=== PATIENT | male | born 2000 | race Caucasian/White ===

== ENCOUNTER 2024-05-09 16:41 | Emergency (ER) | payer MEDICAID ==
[~2024-05-09] VITALS: Ht 182.9 cm; Wt 100.0 kg
[2024-05-09 16:42] VITALS: O2SAT 97
[2024-05-09] MEDS: LEVETIRACETAM 1000MG PREMIX 100 ML IV ONE (18:07)
[2024-05-09] MEDS: SODIUM CHLORIDE 0.9% 1,000 ML IV ONE (18:07)
[2024-05-09 18:43] LABS: BASOPHILS % 0.3 % (0.0-2.0); EOSINOPHILS % 0.5 % (0.0-5.0); HEMATOCRIT. 49.8 % (42.0-52.0); HEMOGLOBIN. 16.8 g/dL (14.0-18.0); LYMPHOCYTES % 8.4 % (20.0-50.0); MEAN CORPUSCULAR HEMOGLOBIN 29.2 pg (28.0-32.0); MEAN CORPUSCULAR HGB CONC 33.8 g/dL (31.0-37.0); MEAN CORPUSCULAR VOLUME 86.5 fL (80.0-94.0); MEAN PLATELET VOLUME 8.7 fl (7.4-10.4); MONOCYTES % 5.2 % (2.0-8.0); NEUTROPHILS % 85.6 % (40.0-76.0); PLATELET 343 x1000/uL (130-400); RED BLOOD CELL COUNT 5.76 mill/uL (4.7-6.1); RED CELL DISTRIBUTION WIDTH 13.9 % (11.6-14.6); WHITE BLOOD COUNT 12.7 x1000/uL (4.5-11.0)
[2024-05-09 18:47] LABS: CHLORIDE 112 mEq/L (98-107); POTASSIUM 3.6 mEq/L (3.5-5.1); SODIUM 143 mEq/L (136-145)
[2024-05-09 18:48] LABS: CARBON DIOXIDE 17 mEq/L (21-32)
[2024-05-09 18:49] LABS: CALCIUM 9.7 mg/dL (8.7-10.4)
[2024-05-09 18:53] LABS: CREATININE 1.1 mg/dL (0.6-1.3); GLUCOSE 71 mg/dL (70-105); UREA NITROGEN BLOOD 12 mg/dL (9-23)
[2024-05-09 18:57] LABS: ETHANOL BLOOD < 10 mg/dL (<10)
[2024-05-09] MEDS: ZONISAMIDE 100MG CAPSULE PO ONE (20:19)
[2024-05-09] MEDS: LAMOTRIGINE 100MG TABLET PO SCH (20:19)
[2024-05-09 21:22] LABS: CLARITY URINE CLEAR (CLEAR); COLOR URINE YELLOW (YELLOW); GLUCOSE URINE NEGATIVE (NEGATIVE); KETONES URINE NEGATIVE (NEGATIVE); LEUKOCYTE ESTERASE URINE NEGATIVE (NEGATIVE); NITRITE URINE NEGATIVE (NEGATIVE); OCCULT BLOOD URINE NEGATIVE (NEGATIVE); PH URINE 6.5 (4.5-8.0); PROTEIN URINE 1+ (NEGATIVE); SPECIFIC GRAVITY URINE 1.022 (1.005-1.030)
[2024-05-09 21:34] LABS: *AMPHETAMINES SCREEN URINE NEGATIVE (NEGATIVE); *BARBITURATES SCREEN URINE NEGATIVE (NEGATIVE); *BENZODIAZEPINES SCREEN URINE NEGATIVE (NEGATIVE); *COCAINE SCREEN URINE NEGATIVE (NEGATIVE); METHADONE URINE SCREEN NEGATIVE (NEGATIVE); OPIATES URINE SCREEN NEGATIVE (NEGATIVE); PHENCYCLIDINE URINE SCREEN NEGATIVE (NEGATIVE)
[2024-05-09 21:35] LABS: CANNABINOID URINE SCREEN NEGATIVE (NEGATIVE); ECSTASY MDMA SCREEN URINE NEGATIVE (NEGATIVE)
[2024-05-09 22:09] VITALS: BP 139/78; PULSE 92; RESP 16; TEMP 36.50292; O2SAT 97
[2024-05-09 22:36] LABS: BACTERIA URINE NONE SEEN; RBC URINE NONE SEEN /hpf (0-2); SQUAMOUS EPITHELIAL CELL URINE NONE SEEN /lpf (RARE/1+); WBC URINE 0-2 /hpf (0-2)
== END 2024-05-09 22:24 | disposition home or self-care (01) ==
LOC: EDBD 16:41 → ER 16:41
DX: G40.909 Epilepsy, unspecified, not intractable, without status epilepticus (principal)
CPT/HCPCS: 80305; 80048; 81003; 80320; 85025; 36415; 96365; 99284; J1953; J7030; G0480

== ENCOUNTER 2024-06-09 17:52 | Emergency (ER) | payer MEDICAID ==
[~2024-06-09] VITALS: Ht 172.7 cm; Wt 110.0 kg
[2024-06-09 17:55] VITALS: O2SAT 98
[2024-06-09] MEDS: LEVETIRACETAM 1000MG PREMIX 100 ML IV ONE (18:56)
[2024-06-09 19:26] VITALS: TEMP 36.61404
[2024-06-09 20:33] LABS: BASOPHILS % 0.3 % (0.0-2.0); EOSINOPHILS % 0.1 % (0.0-5.0); HEMATOCRIT. 44.9 % (42.0-52.0); HEMOGLOBIN. 15.4 g/dL (14.0-18.0); LYMPHOCYTES % 7.9 % (20.0-50.0); MEAN CORPUSCULAR HEMOGLOBIN 29.3 pg (28.0-32.0); MEAN CORPUSCULAR HGB CONC 34.4 g/dL (31.0-37.0); MEAN CORPUSCULAR VOLUME 85.1 fL (80.0-94.0); MEAN PLATELET VOLUME 8.2 fl (7.4-10.4); MONOCYTES % 6.2 % (2.0-8.0); NEUTROPHILS % 85.5 % (40.0-76.0); PLATELET 314 x1000/uL (130-400); RED BLOOD CELL COUNT 5.27 mill/uL (4.7-6.1); RED CELL DISTRIBUTION WIDTH 13.6 % (11.6-14.6); WHITE BLOOD COUNT 16.9 x1000/uL (4.5-11.0)
[2024-06-09 20:35] LABS: CHLORIDE 112 mEq/L (98-107); POTASSIUM 3.7 mEq/L (3.5-5.1); SODIUM 142 mEq/L (136-145)
[2024-06-09 20:36] LABS: CALCIUM 9.3 mg/dL (8.7-10.4); CARBON DIOXIDE 19 mEq/L (21-32)
[2024-06-09 20:41] LABS: CREATININE 1.1 mg/dL (0.6-1.3); GLUCOSE 112 mg/dL (70-105); UREA NITROGEN BLOOD 16 mg/dL (9-23)
[2024-06-09 20:56] LABS: ETHANOL BLOOD < 10 mg/dL (<10)
[2024-06-09 21:47] VITALS: BP 109/70; PULSE 106; RESP 12; O2SAT 99
== END 2024-06-09 21:48 | disposition home or self-care (01) ==
LOC: ER 17:52
DX: R56.9 Unspecified convulsions (principal)
CPT/HCPCS: 80048; 80320; 85025; 36415; 96365; 99284; J1953; Z7610 ×2; G0480

== ENCOUNTER 2024-07-07 08:34 | Emergency (ER) | payer MEDICAID ==
[~2024-07-07] VITALS: Ht 180.3 cm; Wt 102.0 kg
[~2024-07-07 08:34] MED LIST: CHOL2000 PO; LAMO150T5 PO; LEVE500T19 PO; ZONI100C45 PO
[2024-07-07 08:38] VITALS: O2SAT 100
[2024-07-07] MEDS: LEVETIRACETAM 1000MG PREMIX 100 ML IV ONE (09:35)
[2024-07-07 09:47] LABS: CHLORIDE 110 mEq/L (98-107); POTASSIUM 3.7 mEq/L (3.5-5.1); SODIUM 140 mEq/L (136-145)
[2024-07-07 09:48] LABS: CALCIUM 9.4 mg/dL (8.7-10.4); CARBON DIOXIDE 22 mEq/L (21-32)
[2024-07-07 09:53] LABS: CREATININE 0.9 mg/dL (0.6-1.3); GLUCOSE 94 mg/dL (70-105); UREA NITROGEN BLOOD 6 mg/dL (9-23)
[2024-07-07 09:59] LABS: ETHANOL BLOOD < 10 mg/dL (<10)
[2024-07-07 10:03] LABS: BASOPHILS % 0.7 % (0.0-2.0); EOSINOPHILS % 3.5 % (0.0-5.0); HEMATOCRIT. 44.1 % (42.0-52.0); HEMOGLOBIN. 15.1 g/dL (14.0-18.0); LYMPHOCYTES % 18.6 % (20.0-50.0); MEAN CORPUSCULAR HEMOGLOBIN 29.3 pg (28.0-32.0); MEAN CORPUSCULAR HGB CONC 34.2 g/dL (31.0-37.0); MEAN CORPUSCULAR VOLUME 85.7 fL (80.0-94.0); MEAN PLATELET VOLUME 8.3 fl (7.4-10.4); MONOCYTES % 10.9 % (2.0-8.0); NEUTROPHILS % 66.3 % (40.0-76.0); PLATELET 257 x1000/uL (130-400); RED BLOOD CELL COUNT 5.15 mill/uL (4.7-6.1); RED CELL DISTRIBUTION WIDTH 13.8 % (11.6-14.6); WHITE BLOOD COUNT 8.2 x1000/uL (4.5-11.0)
[2024-07-07 11:00] VITALS: BP 113/83; PULSE 79; RESP 12; TEMP 36.94740; O2SAT 99
[2024-07-07 11:38] LABS: CLARITY URINE CLEAR (CLEAR); COLOR URINE YELLOW (YELLOW); GLUCOSE URINE NEGATIVE (NEGATIVE); KETONES URINE NEGATIVE (NEGATIVE); LEUKOCYTE ESTERASE URINE NEGATIVE (NEGATIVE); NITRITE URINE NEGATIVE (NEGATIVE); OCCULT BLOOD URINE NEGATIVE (NEGATIVE); PROTEIN URINE NEGATIVE (NEGATIVE)
[2024-07-07 12:09] LABS: *AMPHETAMINES SCREEN URINE NEGATIVE (NEGATIVE)
[2024-07-07 12:10] LABS: *BARBITURATES SCREEN URINE NEGATIVE (NEGATIVE); *BENZODIAZEPINES SCREEN URINE NEGATIVE (NEGATIVE); *COCAINE SCREEN URINE NEGATIVE (NEGATIVE); CANNABINOID URINE SCREEN NEGATIVE (NEGATIVE); ECSTASY MDMA SCREEN URINE NEGATIVE (NEGATIVE); METHADONE URINE SCREEN NEGATIVE (NEGATIVE); OPIATES URINE SCREEN NEGATIVE (NEGATIVE); PHENCYCLIDINE URINE SCREEN NEGATIVE (NEGATIVE)
== END 2024-07-07 11:28 | disposition home or self-care (01) ==
LOC: ER 08:34
DX: R56.9 Unspecified convulsions (principal); Z98.890 Other specified postprocedural states; Z91.012 Allergy to eggs
CPT/HCPCS: 80305; 80048; 81003; 80320; 85025; 36415; 96374; 99283; J1953; Z7610; G0480

== ENCOUNTER 2024-09-09 18:54 | Emergency (ER) | payer MEDICAID ==
[~2024-09-09] VITALS: Ht 172.7 cm; Wt 145.0 kg
[2024-09-09 18:55] VITALS: TEMP 37.2; O2SAT 96
[2024-09-09 20:27] LABS: HEMATOCRIT. 47.5 % (42.0-52.0); HEMOGLOBIN. 16.3 g/dL (14.0-18.0); MEAN CORPUSCULAR HEMOGLOBIN 29.3 pg (28.0-32.0); MEAN CORPUSCULAR HGB CONC 34.2 g/dL (31.0-37.0); MEAN CORPUSCULAR VOLUME 85.7 fL (80.0-94.0); MEAN PLATELET VOLUME 8.4 fl (7.4-10.4); PLATELET 344 x1000/uL (130-400); RED BLOOD CELL COUNT 5.55 mill/uL (4.7-6.1); RED CELL DISTRIBUTION WIDTH 13.7 % (11.6-14.6); WHITE BLOOD COUNT 17.4 x1000/uL (4.5-11.0)
[2024-09-09] MEDS: ONDANSETRON HCL 4MG/2ML INJ IV ONE (20:32)
[2024-09-09 20:34] LABS: CHLORIDE 110 mEq/L (98-107); DIFFERENTIAL COMMENT 1; POTASSIUM 3.5 mEq/L (3.5-5.1); SODIUM 142 mEq/L (136-145)
[2024-09-09 20:35] LABS: CALCIUM 9.4 mg/dL (8.7-10.4); CARBON DIOXIDE 20 mEq/L (21-32)
[2024-09-09 20:40] LABS: CREATININE 1.2 mg/dL (0.6-1.3); GLUCOSE 123 mg/dL (70-105); UREA NITROGEN BLOOD 11 mg/dL (9-23)
[2024-09-09 20:43] LABS: ETHANOL BLOOD < 10 mg/dL (<10)
[2024-09-09 20:59] LABS: PLATELET ESTIMATE NORMAL
[2024-09-09 22:39] VITALS: BP 147/82; PULSE 94; RESP 18; O2SAT 95
[2024-09-11] MEDS ORDERED: LEVE10006 MT (01:07)
== END 2024-09-09 22:41 | disposition home or self-care (01) ==
LOC: ER 18:54
DX: G40.909 Epilepsy, unspecified, not intractable, without status epilepticus (principal); Z79.899 Other long term (current) drug therapy
CPT/HCPCS: 80048; 80320; 85025; 36415; 96374; 99283; J2405; 82542; G0480

== ENCOUNTER 2024-09-19 15:54 | Emergency (ER) | payer MEDICAID ==
[~2024-09-19] VITALS: Ht 167.6 cm; Wt 100.0 kg
[~2024-09-19 15:54] MED LIST changes: +LEVE10006 MT; -LEVE500T19 PO
[2024-09-19 15:56] VITALS: O2SAT 100
[2024-09-19] MEDS: LEVETIRACETAM 1000MG PREMIX 100 ML IV ONE (16:55)
[2024-09-19 17:02] LABS: BASOPHILS % 0.2 % (0.0-2.0); EOSINOPHILS % 0.3 % (0.0-5.0); HEMATOCRIT. 51.2 % (42.0-52.0); HEMOGLOBIN. 16.7 g/dL (14.0-18.0); MEAN CORPUSCULAR HEMOGLOBIN 29.2 pg (28.0-32.0); MEAN CORPUSCULAR HGB CONC 32.6 g/dL (31.0-37.0); MEAN CORPUSCULAR VOLUME 89.4 fL (80.0-94.0); MEAN PLATELET VOLUME 8.5 fl (7.4-10.4); MONOCYTES % 5.6 % (2.0-8.0); NEUTROPHILS % 85.9 % (40.0-76.0); PLATELET 323 x1000/uL (130-400); RED BLOOD CELL COUNT 5.73 mill/uL (4.7-6.1); WHITE BLOOD COUNT 12.3 x1000/uL (4.5-11.0)
[2024-09-19 17:10] LABS: CHLORIDE 111 mEq/L (98-107); POTASSIUM 4.2 mEq/L (3.5-5.1); SODIUM 140 mEq/L (136-145)
[2024-09-19 17:11] LABS: CARBON DIOXIDE 15 mEq/L (21-32)
[2024-09-19 17:12] LABS: CALCIUM 9.3 mg/dL (8.7-10.4)
[2024-09-19 17:16] LABS: GLUCOSE 94 mg/dL (70-105); UREA NITROGEN BLOOD 7 mg/dL (9-23)
[2024-09-19] MEDS: SODIUM CHLORIDE 0.9% 1,000 ML IV ONE (17:42)
[2024-09-19 20:45] VITALS: BP 136/68; PULSE 90; RESP 14; TEMP 36.9; O2SAT 98
== END 2024-09-19 20:51 | disposition home or self-care (01) ==
LOC: ER 15:54
DX: G40.909 Epilepsy, unspecified, not intractable, without status epilepticus (principal); E11.9 Type 2 diabetes mellitus without complications; I10 Essential (primary) hypertension; Z79.899 Other long term (current) drug therapy; Z94.0 Kidney transplant status
CPT/HCPCS: 99284; 96365; 96361; 80048; 85025; 36415; 93005; J1953; J7030

== ENCOUNTER 2024-10-23 12:43 | Emergency (ER) | payer MEDICAID ==
[~2024-10-23] VITALS: Ht 172.7 cm; Wt 136.0 kg
[2024-10-23 12:47] VITALS: O2SAT 100
[2024-10-23] MEDS: SODIUM CHLORIDE 0.9% 1,000 ML IV ONE (17:06)
[2024-10-23 18:05] VITALS: BP 131/66; PULSE 95; RESP 16; TEMP 36.7; O2SAT 100
== END 2024-10-23 18:19 | disposition home or self-care (01) ==
LOC: ER 12:46
DX: G40.909 Epilepsy, unspecified, not intractable, without status epilepticus (principal); Z79.899 Other long term (current) drug therapy
CPT/HCPCS: 99291; 96360; J7030; A4606